=== PATIENT | female | born 1975 | race Caucasian/White ===

== ENCOUNTER 2019-05-16 15:41 | Outpatient (CLI) | payer OTHER, SELFPAY ==
--- NOTE | 2019-05-22 14:54 | WPDHOLTEREM ---
Holter/Event Monitor Holter/Event Monitor Date of procedure: 05/16/19 Procedure Type: 48 hour holter monitor Indications: Palpitations, MVP Conclusion: 1. 48 hour holter monitor on 05/16/19. 2. Underlying rhythm is sinus rhythm. HR range 47-115 bpm; average HR 71 bpm. 3. No premature supraventricular complexes. No supraventricular tachycardia. 4. There is one premature ventricular complex and 1 ventricular couplet. No ventricular tachycardia. 5. No sinoatrial or atrioventricular blocks. No significant pauses greater than 2 seconds. 6. Patient has symptoms of fluttering which demonstrate sinus rhythm, HR 72-90 bpm.
== END 2019-05-16 15:42 | disposition home or self-care (01) ==
PROVIDERS: PCP Family Medicine; Visit Provider Physician Assistant Medical
DX: R00.2 Palpitations (principal)
CPT/HCPCS: 93225; 93226